=== PATIENT | male | born 1950 | race Caucasian/White ===

== ENCOUNTER 2017-04-03 04:59 | Emergency (ER) | END 2017-04-03 08:11 | disposition home or self-care (01) ==

== ENCOUNTER 2017-04-12 06:27 | Emergency (ER) | END 2017-04-12 08:55 | disposition left against medical advice (07) ==

== ENCOUNTER 2018-04-30 10:26 | Emergency (ER) | payer MEDICAID, MEDICARE ==
[~2018-04-30] VITALS: Wt 103.1 kg
[~2018-04-30 10:26] MED LIST: ALBU18HF INHALATION; AZIT250T PO; BACTDS PO; BENZ-6 PO; CETI10CA PO; D-ME473S2 PO; FLUT9.9S NASAL; GUAI5SYR2 PO; ONDA4TAB35 PO; PANT40TA3 PO
[2018-04-30 10:34] VITALS: BP 177/84; PULSE 86; RESP 17
[2018-04-30] MEDS ORDERED: ELIM TOP (11:05)
--- NOTE | 2018-04-30 11:19 | ERD ---
ER Documentation Chief Complaint Chief Complaint RASH ALL OVER X1 WEEK HPI 58-year-old male presenting with rash times 1 week. States he states that the rash is worse at night. It is in his hands and groin area. His family also have similar rash. Patient has been using Benadryl with no alleviation of symptoms. Patient denies any medical problems. NKDA. Surgical history denies. Social history denies ROS All systems reviewed and are negative except as per history of present illness. Medications Home Meds Active Scripts Permethrin* (Elimite*) 5% Cr, 1 APPLIC TOP ONCE, #5 TUB Prov:FINESSE CHAWLA PA-C 04/30/18 Guaifenesin-Dextromethorphan* (Robitussin* DM) 100MG/10MG/5ML Syrup, 10 ML PO Q6H PRN for COUGH for 5 Days, ML Prov:ANKUR CALDERON PA-C 04/12/17 Fluticasone Propionate (Flonase Allergy Relief) 9.9 Ml [place].susp, 2 SPRAY NASAL DAILY, #1 BOTTLE TO EACH NOSTRIL Prov:ANKUR CALDERON PA-C 04/12/17 Cetirizine Hcl* (Zyrtec*) 10 Mg Capsule, 10 MG PO DAILY, #14 TAB.CHEW Prov:ANKUR CALDERON PA-C 04/12/17 Albuterol Sulfate* (Ventolin HFA*) 18 Gm Hfa.aer.ad, 2 PUFF INHALATION Q6H, #1 INHALER Prov:ANKUR CALDERON PA-C 04/12/17 Azithromycin* (Zithromax*) 250 Mg Tablet, 250 MG PO .FredisPACK DIRECTED, #6 TAB TAKE 500 MG (2 TABS) THE FIRST DAY THEN 250 MG (1 TAB) DAYS 2-5 Prov:FINESSE CHAWLA PA-C 04/03/17 Benzonatate* (Tessalon Perle*) 100 Mg Capsule, 100 MG PO Q8H PRN for COUGH, #30 CAP Prov:FINESSE CHAWLA PA-C 04/03/17 Dextromethorphan Hb-Promethazine Hcl* (Promethazine DM* Syrup) 473 Ml Syrup, 5 ML PO Q6 PRN for COUGH, #100 ML Prov:FINESSE CHAWLA PA-C 04/03/17 Ondansetron Hcl* (Zofran* ODT) 4 mg -ODT Tab.disper, 4 MG PO Q6H PRN for VOMITTING, #20 TAB Prov:SANTIAGO,REZA V. BED BUG EXTERMINATOR 08/16/15 Sulfamethoxazole-Trimethoprim* (Bactrim* DS) 800-160 Mg Tab, 1 TAB PO BID, #20 TAB Prov:SANTIAGO,REZA V. BED BUG EXTERMINATOR 08/16/15 Pantoprazole* (Protonix*) 40 Mg Tablet.dr, 40 MG PO DAILY, #30 TAB Prov:DREW QUINTANA 12/03/14 Allergies Allergies: Coded Allergies: Penicillins (Verified Allergy, Unknown, 04/12/17) PMhx/Soc History of Surgery: Yes (jessi chambers 2004, hernia repair at 13 yo) Anesthesia Reaction: No Hx Neurological Disorder: No Hx Respiratory Disorders: No Hx Cardiac Disorders: No Hx Psychiatric Problems: No Hx Miscellaneous Medical Probl: No Hx Alcohol Use: Yes Hx Substance Use: No Hx Tobacco Use: No FmHx Family History: No diabetes, No coronary disease, No other Physical Exam Vitals Vital Signs Date Temp Pulse Resp B/P (MAP) Pulse Ox O2 O2 Flow FiO2 Time Delivery Rate 04/30/18 99.4 86 17 177/84 98 10:34 (115) Physical Exam GENERAL: The patient is well-appearing, well-nourished, in no acute distress HEENT: Atraumatic. Conjunctivae are pink. Pupils equal, round, and reactive to light. There is no scleral icterus. Tympanic membranes clear bilaterally. Oropharynx clear. No nystagmus or photophobia. CHEST: Clear to auscultation bilaterally. There are no rales, wheezes or rhonchi. HEART: Regular rate and rhythm. No murmurs, clicks, rubs or gallops. SKIN: Erythematous macules noted on hands and groin. Questionable linear burrowing. No vesicles. No pustules. Procedures/MDM MDM: 60-year-old male presenting with findings consistent with scabies. I have low suspicion for life-threatening rash. Patient is discharged with supportive medications. Patient is discharged and recommended to use medication appropriately. All family needs to be treated. Patient is told symptoms change or worsen to return ER immediately. All questions answered at discharge Departure Diagnosis: Primary Impression: Rash Condition: Stable Patient Instructions: Scabies Referrals: [facility] YOU HAVE RECEIVED A MEDICAL SCREENING EXAM AND THE RESULTS INDICATE THAT YOU DO NOT HAVE A CONDITION THAT REQUIRES URGENT TREATMENT IN THE EMERGENCY DEPARTMENT. FURTHER EVALUATION AND TREATMENT OF YOUR CONDITION CAN WAIT UNTIL YOU ARE SEEN IN YOUR DOCTORS OFFICE WITHIN THE NEXT 1-2 DAYS. IT IS YOUR RESPONSIBILITY TO MAKE AN APPOINTMENT FOR FOLOW-UP CARE. IF YOU HAVE A PRIMARY DOCTOR --you should call your primary doctor and schedule an appointment IF YOU DO NOT HAVE A PRIMARY DOCTOR YOU CAN CALL OUR PHYSICIAN REFERRAL HOTLINE AT IF YOU CAN NOT AFFORD TO SEE A PHYSICIAN YOU CAN CHOSE FROM THE FOLLOWING [facility] [id number] [facility] [address] [facility] [address] [facility] [address] [facility] [address] [facility] [address] Additional Instructions: FOLLOW UP WITH YOUR PRIMARY CARE PHYSICIAN TOMORROW.Return to this facility if you are not improving as expected. FINESSE CHAWLA PA-C Apr 30, 2018 11:19
== END 2018-04-30 11:40 | disposition home or self-care (01) ==
LOC: FTE 10:26
DX: B86 Scabies (principal)
CPT/HCPCS: 99282